=== PATIENT | male | born 1985 | race American Indian/Alaskan Native ===

== ENCOUNTER 2017-07-15 22:12 | Observation (INO) | payer SELFPAY ==
[2017-07-15 22:26] VITALS: TEMP 98.6; O2SAT 99
[2017-07-15 23:15] LABS: BASO % 0.4 % (0.0-2.0); EOS # 0.2 K/uL (0.0-0.7); EOS % 2.1 % (0.0-4.0); HEMATOCRIT 46.9 % (35.0-51.0); LYMPH # 2.6 K/uL (1.0-4.3); LYMPH % 34.6 % (20.0-40.0); MEAN CELL VOLUME 89.7 fL (80.0-94.0); MEAN CORPUSCULAR HEMOGLOBIN 29.7 pg (27.0-31.0); MEAN CORPUSCULAR HGB CONC 33.2 g/dL (33.0-37.0); MEAN PLATELET VOLUME 8.4 fL (7.2-11.7); MONO # 0.4 K/uL (0.0-0.8); MONO % 5.4 % (0.0-10.0); NRBC % 0.1 % (0.0-2.0); RED CELL DISTRIBUTION WIDTH 14.1 % (11.5-14.5); WHITE BLOOD COUNT 7.5 K/uL (4.8-10.8)
[2017-07-15 23:25] LABS: ALB/GLOB RATIO 1.2 (1.0-2.1); ALCOHOL SERUM 264 mg/dl (0-10); ALKALINE PHOSPHATASE 55 U/L (38-126); ALT/SGPT 30 U/L (21-72); AST/SGOT 20 U/L (17-59); BILIRUBIN,TOTAL 1.3 mg/dL (0.2-1.3); BLOOD UREA NITROGEN 9 mg/dL (9-20); CALCIUM 9.9 mg/dl (8.6-10.4); CARBON DIOXIDE 28 mmol/L (22-30); CHLORIDE 102 mmol/L (98-107); GFR AFRICAN-AMERICAN > 60; GLUCOSE,RANDOM 87 mg/dL (75-110); POTASSIUM 3.4 mmol/L (3.6-5.2); SODIUM 146 mmol/L (132-148); TOTAL PROTEIN 8.3 g/dL (6.3-8.3)
[2017-07-16 00:13] LABS: RBC URINE < 1 /hpf (0-3); URINE BILIRUBIN NEGATIVE (NEGATIVE); URINE BLOOD NEGATIVE (NEGATIVE); URINE COLOR Colorless (YELLOW); URINE GLUCOSE (UA) NORMAL (Normal); URINE KETONE NEGATIVE (NEGATIVE); URINE LEUKOCYTE ESTERASE NEG Leu/uL (Negative); URINE PROTEIN NEGATIVE (NEGATIVE); URINE UROBILINOGEN NORMAL mg/dL (0.2-1.0)
--- NOTE | 2017-07-16 00:41 | C.PDOC ---
History Of Present Illness Patient brought to ED by EMS for evaluation of agitation and making threatening comments to his roommates. Patient admits to drinking alcohol and smoking marijuana tonight. Time Seen by Provider: 07/15/17 22:17 Chief Complaint (Nursing): Substance Abuse History Per: Patient, EMS History/Exam Limitations: intoxication Onset/Duration Of Symptoms: Unknown Modifying Factor(s): Alcohol, Marijuana Severity: Moderate Associated Symptoms: Other (threatening roommates) Past Medical History Reviewed: Historical Data, Nursing Documentation, Vital Signs Vital Signs: Last Vital Signs Temp 98.6 F 07/15/17 22:20 Pulse 76 07/15/17 22:20 Resp 18 07/15/17 22:20 BP 142/88 07/15/17 22:20 Pulse Ox 99 07/16/17 05:28 - Medical History PMH: No Chronic Diseases Family History: States: No Known Family Hx Review Of Systems Except As Marked, All Systems Reviewed And Found Negative. Constitutional: Negative for: Fever, Chills Cardiovascular: Negative for: Chest Pain Respiratory: Negative for: Shortness of Breath Gastrointestinal: Negative for: Nausea, Vomiting, Abdominal Pain, Diarrhea Physical Exam - Physical Exam Appears: Well, Non-toxic, No Acute Distress, Other (appears intoxicated ) Skin: Normal Color, Warm, Dry Head: Atraumatic, Normacephalic Eye(s): bilateral: Normal Inspection Oral Mucosa: Moist Cardiovascular: Rhythm Regular Respiratory: Normal Breath Sounds, No Rales, No Rhonchi, No Wheezing Gastrointestinal/Abdominal: Normal Exam, Bowel Sounds, Soft, No Tenderness Extremity: Normal ROM Extremity: Bilateral: Atraumatic, Normal Color And Temperature, Normal ROM Neurological/Psych: Other (awake, alert, moving all 4 extremities spontaneously) ED Course And Treatment - Laboratory Results Result Diagrams: 07/15/17 23:11 07/15/17 23:11 O2 Sat by Pulse Oximetry: 99 (RA) Pulse Ox Interpretation: Normal Progress Note: 12:25AM- Patient reassessed, is sleeping comfortably, arousable to verbal stimuli. Pending sobriety/crisis. 1:00AM - Patient medically cleared , pending crisis evaluation. 4:30am - Patient awake & alert, asking for sandwich. Pending crisis eval/dispo. 6:45am- Patient has been evaluated by crisis counselor, who discussed patient with insulation sprayer psychiatrist Dr. Gannon. Patient has been cleared for discharge from psychiatric standpoint. He has been set up for outpatient psychiatric appointment, and he understands he should return to ED if he has any concerning symptoms. He is AAOx3, ambulating normally in ED, is clinically sober and denies SI/HI. Reevaluation Time: 06:50 Reassessment Condition: Improved Disposition Counseled Patient/Family Regarding: Diagnosis, Need For Followup - Disposition Disposition: HOME/ ROUTINE Disposition Time: 06:50 Condition: STABLE - Clinical Impression Clinical Impression: Alcohol intoxication, Agitation
[2017-07-16 07:34] VITALS: BP 126/74; PULSE 70; RESP 20
== END 2017-07-16 06:51 | disposition home or self-care (01) ==
LOC: C.ER 22:12 → SUPCPDRO 22:12 → C.9OBSV 23:59
PROVIDERS: ADMIT Emergency Medicine; ATTEND Emergency Medicine
DX: F10.129 Alcohol abuse with intoxication, unspecified (principal); R45.1 Restlessness and agitation
CPT/HCPCS: 80053; 81001; 82948; 85025; 99283; G0378; G0480